=== PATIENT | female | born 1950 | race Caucasian/White ===

== ENCOUNTER 2018-05-27 17:41 | Observation (INO) ==
[2018-05-27] MEDS ORDERED: MethylPREDNISolone Sod Succinate Inj 125 MG/2 ML Vial IV.PUSH ONE (18:21)
--- NOTE | 2018-05-27 18:30 | ED ---
HPI General Chief Complaint: Respiratory Symptoms Stated Complaint: flu like symptoms x1week Time Seen by Provider: 05/27/18 18:14 Source: patient Mode of arrival: ambulatory Limitations: no limitations History of Present Illness MD Complaint: Reports shortness of breath Onset (ago): week(s) (2) Severity: moderate Consistency/Duration: constant and progressively worsening Relieving factors: bronchodilators Exacerbating factors: lying flat Known history of: Reports COPD and congestive heart failure Associated symptoms: Reports cough, wheezing and orthopnea; Denies fever Treatment prior to arrival: Reports bronchodilator Related Data Home oxygen amount: none Home Medications Medication Instructions Recorded Confirmed apixaban [Eliquis] 2.5 mg PO BID 05/27/18 05/27/18 furosemide 0 mg PO DAILY 05/27/18 05/27/18 magnesium 200 mg PO DAILY 05/27/18 05/27/18 metoprolol tartrate 50 mg PO BID 05/27/18 05/27/18 potassium chloride [Klor-Con 10] 20 meq PO BID 05/27/18 05/27/18 Previous Rx's Medication Instructions Recorded azithromycin [Zithromax] 250 mg PO DAILY 4 Days #4 tab 05/27/18 fluticasone-salmeterol [Advair 1 inh INHALATION BID #14 each 05/27/18 Diskus] promethazine-codeine 10 ml PO Q4-6H PRN #473 ml 05/27/18 Allergies Allergy/AdvReac Type Severity Reaction Status Date / Time iohexol Allergy Unknown vomitting Verified 05/27/18 17:46 Review of Systems ROS: all other systems reviewed are negative [facility] Social History Social History Substance History: No History of Abuse Smoking Status: Current every day smoker Tobacco Type: Cigarettes How Often Do You Have a Drink Containing Alcohol: Never Recent Travel in [facility] within the Last 8 Weeks: No Recent Out of Country Travel within the Last 8 Weeks: No Exam Const General: cooperative, healthy appearing, comfortable, no acute distress, well developed and well groomed Orientation: alert, awake and oriented x3 HENMT Head: normal to inspection, normocephalic and atraumatic Eyes Alignment and Position: alignment normal Conjunctivae: conjunctivae normal Sclera: sclerae normal EOM: EOM intact bilaterally Neck Neck: normal visual inspection and full ROM Chest Chest: normal inspection of the chest Resp Effort & Inspection: normal respiratory effort and able to speak in complete sentences Auscultation: rhonchi Cardio Rate: regular rate Rhythm: regular rhythm GI Inspection: normal to inspection Palpation: soft Back/Spine/Pelvis Cervical Spine: cervical ROM normal Thoracic/Lumbar Spine: thoraco-lumbar ROM normal Skin General: no rashes or lesions noted and turgor normal Neuro General: alert, awake, oriented x3, moves all extremities and CN's II-XI intact bilaterally Extrem General: normal to inspection and full ROM Psych Appearance: grossly normal Mental Status: mental status grossly normal Speech and Movement: speech and movement normal Mood: congruent mood Affect: normal affect Attitude: cooperative Thought Process: normal Thought Content: normal Judgment: judgment good Course Initial Documented Vital Signs Temperature 98.4 F 05/27/18 17:46 Pulse Rate 122 H 05/27/18 17:46 Respiratory Rate 24 05/27/18 17:46 Blood Pressure 151/62 H 05/27/18 17:46 Pulse Oximetry 93 L 05/27/18 17:46 Last Documented Vital Signs Temperature 98.4 F 05/27/18 17:46 Pulse Rate 111 H 05/27/18 18:30 Respiratory Rate 20 05/27/18 18:30 Blood Pressure 151/62 H 05/27/18 17:46 Pulse Oximetry 95 05/27/18 18:21 Medical Decision Making MDM Narrative Medical decision making narrative: of increasing dyspnea.This is a patient with history of both COPD and CHF who presents with a 2-week history she has used 3 nebulizer treatments today and states her symptoms are better at this point. She has been afebrile. She has not had purulent sputum production. She has had orthopnea. Dyspnea workup is in process. She will be treated with stacked duo nebs and Solu-Medrol. Further treatment and disposition will be dependent upon the results of her studies and response to treatment. CT has been ordered because of the results of the plain chest x-ray. In the meantime, she will be empirically treated for pneumonia with IV Rocephin and IV Zithromax. His CT is most compatible with pneumonia. Admission has been offered but refused. The patient is requesting a prescription for cough syrup. E-Forcse has been recorded and reviewed. She will be discharged home with prescriptions for Zithromax, Advair and Phenergan with codeine. She is refusing oral steroids. She states that she "blew up like a balloon" previously when on steroids. Medical Screen Exam Complete: Yes Emergency Medical Condition: Yes Differential Diagnosis Differential Diagnosis: Differential diagnosis of dyspnea includes but is not limited to congestive heart failure, pneumonia, wheezing, pneumothorax, pulmonary embolism Medical Records Medical records reviewed: Yes I reviewed the patient's medical records. Lab Data Lab results reviewed: Yes I reviewed the patient's lab results. Result diagrams: 05/27/18 18:43 05/27/18 18:43 Lab Results 05/27/18 05/27/18 05/27/18 Range/Units 18:43 18:43 18:43 CBC w Diff Slide review pending WBC 4.0 (4.0-11.0) th/mm3 RBC 4.81 (4.00-5.30) mil/mm3 Hgb 14.4 (11.6-15.3) gm/dL Hct 43.6 (35.0-46.0) % MCV 90.7 (80.0-100.0) fL MCH 30.0 (27.0-34.0) pg MCHC 33.0 (32.0-36.0) % RDW 15.2 (11.6-17.2) % Plt Count 75 L (150-450) th/mm3 MPV 8.2 (7.0-11.0) fL Neut % (Auto) 60.1 (16.0-70.0) % Lymph % (Auto) 20.4 (9.0-44.0) % Wilkin % (Auto) 16.6 H (0.0-8.0) % Eos % (Auto) 1.3 (0.0-4.0) % Baso % (Auto) 1.6 (0.0-2.0) % Neut # (Auto) 2.3 (1.8-7.7) th/mm3 Lymph # (Auto) 0.8 L (1.0-4.8) th/mm3 Wilkin # (Auto) 0.7 (0.0-0.9) th/mm3 Eos # (Auto) 0.1 (0.0-0.4) th/mm3 Baso # (Auto) 0.1 (0.0-0.2) th/mm3 WBC Differential . Diff Scan Auto diff confirmed Differential Comment . Platelet Estimate Low L (Normal) Platelet Morphology Normal (Normal) RBC Morphology Normal (Normal) Sodium 138 (136-145) meq/L Potassium 3.9 (3.5-5.1) meq/L Chloride 103 (98-107) meq/L Carbon Dioxide 26.2 (21.0-32.0) meq/L Anion Gap 9 (5-15) meq/L BUN 12 (7-18) mg/dL Creatinine 0.84 (0.50-1.00) mg/dL Estimated GFR 67 L (>89) mL/min Random Glucose 97 (74-106) mg/dL Calcium 8.7 (8.5-10.1) mg/dL Total Bilirubin 1.2 H (0.2-1.0) mg/dL AST 29 (15-37) U/L ALT 18 (10-53) U/L Alkaline Phosphatase 112 (45-117) U/L Troponin I Less than 0.02 L (0.02-0.05) ng/mL B-Natriuretic Peptide 158 H (0-100) pg/mL Total Protein 7.5 (6.4-8.2) g/dL Albumin 3.2 L (3.4-5.0) g/dL Imaging Data Attestation: I personally reviewed and interpreted this imaging study as follows : Radiologist's impression: Chest X-Ray 05/27/18 18:21 CONCLUSION: 1. Nearly masslike right perihilar parenchymal opacity. Consider CT examination for better evaluation. Chest CT 05/27/18 19:06 CONCLUSION: 1. Abnormality on chest x-ray corresponds to airspace consolidation in the medial superior segment of the right lower lobe and superimposed enlarged pulmonary artery branches. Findings are consistent with right lower lobe pneumonia. 2. Enlarged pulmonary arteries consistent with pulmonary artery hypertension. 3. Linear parenchymal opacities at the lung bases consistent with atelectasis/ scarring. Mild cardiomegaly. ECG Data EKG Prior to Arrival: No Attestation: I personally reviewed and interpreted this ECG as follows: (EKG shows atrial fibrillation with a ventricular rate of 112. No acute STT wave changes.) Discharge Plan Discharge Disposition Patient Disposition: Discharge Home Discharge Condition Condition: Stable Discharge Order Discharge Orders: Discharge Order (Routine); Ordered 05/27/18 Ordered By: Mariely Ludwig Discharge Details Diagnosis: Acute dyspnea, Pneumonia Physicians Team ED Provider: Mariely Ludwig Primary Care Provider: Susan Willis Rxs /Orders / Referrals /Forms Prescriptions: New azithromycin [Zithromax] 250 mg tablet 250 mg PO DAILY 4 Days Qty: 4 RF: 0 fluticasone-salmeterol [Advair Diskus] 250-50 mcg/dose blister with device 1 inh INHALATION BID Qty: 14 RF: 0 promethazine-codeine 6.25-10 mg/5 mL syrup 10 ml PO Q4-6H PRN (Reason: cough) Qty: 473 RF: 0 No Action potassium chloride [Klor-Con 10] 10 mEq Tablet Extended Release 20 meq PO BID RF: 0 metoprolol tartrate 50 mg Tablet 50 mg PO BID RF: 0 furosemide 20 mg Tablet PO DAILY RF: 0 magnesium 200 mg Tablet 200 mg PO DAILY RF: 0 apixaban [Eliquis] 2.5 mg Tablet 2.5 mg PO BID RF: 0 Referrals: Susan Willis MD [Primary Care Provider] - 1 Week Discharge Instructions Patient Printed Instructions: Bacterial Pneumonia (DC) Status ED Status: With Doctor
[2018-05-27 18:49] LABS: Baso # (Auto) 0.1 th/mm3 (0.0-0.2); Baso % (Auto) 1.6 % (0.0-2.0); Eos # (Auto) 0.1 th/mm3 (0.0-0.4); Eos % (Auto) 1.3 % (0.0-4.0); Hematocrit 43.6 % (35.0-46.0); Hemoglobin 14.4 gm/dL (11.6-15.3); Lymph # (Auto) 0.8 th/mm3 (1.0-4.8); Lymph % (Auto) 20.4 % (9.0-44.0); Mean Corpuscular Volume 90.7 fL (80.0-100.0); Mean Platelet Volume 8.2 fL (7.0-11.0); Mono # (Auto) 0.7 th/mm3 (0.0-0.9); Mono % (Auto) 16.6 % (0.0-8.0); Neut # (Auto) 2.3 th/mm3 (1.8-7.7); Neut % (Auto) 60.1 % (16.0-70.0); Platelet Count 75 th/mm3 (150-450); Red Blood Count 4.81 mil/mm3 (4.00-5.30); Red Cell Distribution Width 15.2 % (11.6-17.2)
[2018-05-27 18:58] LABS: Chloride 103 meq/L (98-107); Potassium 3.9 meq/L (3.5-5.1); Sodium 138 meq/L (136-145)
[2018-05-27 19:02] LABS: Albumin 3.2 g/dL (3.4-5.0); Anion Gap 9 meq/L (5-15); Blood Urea Nitrogen 12 mg/dL (7-18); Calcium 8.7 mg/dL (8.5-10.1); Carbon Dioxide 26.2 meq/L (21.0-32.0); Glucose,Random 97 mg/dL (74-106)
--- NOTE | 2018-05-27 19:03 | XR ---
EXAM DATE: 05/27/2018 6:59 PM EST AGE/SEX: 68 years / Female INDICATIONS: Chest pain, cough, wheezing and shortness of breath for about a week. CLINICAL DATA: This is the patient's initial encounter. Patient reports that signs and symptoms have been present for 1 week and indicates a pain score of 6/10. MEDICAL/SURGICAL HISTORY: Chronic obstructive pulmonary disease. Congestive heart failure. ANNEMARIE B. . Esophagus repair. Heart surgery. COMPARISON: POI, XR CHEST PA AND LAT, 05/15/2017. . FINDINGS: Right perihilar masslike parenchymal opacity. Cardiac silhouette is enlarged with slight indistinct c entral pulmonary vascularity. Bony thorax is intact. CONCLUSION: 1. Nearly masslike right perihilar parenchymal opacity. Consider CT examination for better evaluatio n. Electronically signed by: Lee Gonzalez MD Board Certified Radiologist 05/27/2018 7:02 PM [facility]
[2018-05-27 19:04] LABS: Platelet Morphology Normal (Normal); RBC Morphology Normal (Normal)
[2018-05-27 19:05] LABS: Alanine Aminotransferase 18 U/L (10-53); Aspartate Aminotransferase 29 U/L (15-37)
[2018-05-27 19:06] LABS: Glomerular Filtration Rate 67 mL/min (>89)
[2018-05-27 19:07] LABS: Total Protein 7.5 g/dL (6.4-8.2)
[2018-05-27 19:08] LABS: Alkaline Phosphatase 112 U/L (45-117)
[2018-05-27] MEDS ORDERED: Azithromycin Inj 500 MG in Sodium Chlor 0.9% Inj 250 ML IV.SIG ONE (19:23)
--- NOTE | 2018-05-27 19:57 | CT ---
EXAM DATE: 05/27/2018 7:51 PM EST AGE/SEX: 68 years / Female INDICATIONS: Shortness of breath. Chest mass. CLINICAL DATA: This is the patient's initial encounter. Patient reports that signs and symptoms have been present for 1 day and indicates a pain score of 2/10. MEDICAL/SURGICAL HISTORY: Chronic obstructive pulmonary disease. Atrial fibrillation. Congestive he art failure. Coronary artery disease. Hypertension. . RADIATION DOSE: 15.82 CTDI (mGy) COMPARISON: No prior exams available for comparison. TECHNIQUE: Multiple contiguous axial images were obtained through the chest without contrast. Image s were obtained in suspended respiration using multiple row detector helical technique. Using automa lilian exposure control and adjustment of the mA and/or kV according to patient size, radiation dose was kept as low as reasonably achievable to obtain optimal diagnostic quality images. DICOM format imag e data is available electronically for review and comparison. FINDINGS: Lung: Airspace consolidation in the medial superior segment of the right lower lobe. Linear airspace opacities at the lung bases bilaterally. Pleura: No effusion, significant pleural thickening or pneumothorax. Mediastinum: Mild cardiomegaly. No significant pericardial effusion. The right and left pulmonary ar teries are prominent measuring more than 3 cm. No gross mediastinal adenopathy. Osseous Structures: No abnormal focal lytic or blastic bony lesions. Soft Tissues: Soft tissues are unremarkable. No significant axillary adenopathy. Other: Visulaized upper abdomen is unremarkable. CONCLUSION: 1. Abnormality on chest x-ray corresponds to airspace consolidation in the medial superior segment o f the right lower lobe and superimposed enlarged pulmonary artery branches. Findings are consistent w ith right lower lobe pneumonia. 2. Enlarged pulmonary arteries consistent with pulmonary artery hypertension. 3. Linear parenchymal opacities at the lung bases consistent with atelectasis/scarring. Mild cardiom egaly. Electronically signed by: Lee Gonzalez MD Board Certified Radiologist 05/27/2018 7:56 PM [facility]
[2018-05-27] MEDS ORDERED: Chlorpheniramine 8 MG/Hydrocodone 10 MG/5 ML UDC PO ONE (20:18)
[2018-05-27] MEDS ORDERED: Acetaminophen 325 MG Tablet PO PRN (22:46)
[2018-05-27] MEDS ORDERED: Bisacodyl 10 MG Supp RECTAL PRN (22:46)
[2018-05-27] MEDS ORDERED: Heparin - SQ 10,000 UNITS/ML Vial SQ SCH (23:00)
[2018-05-28] MEDS: MethylPREDNISolone Sod Succinate Inj 40 MG/ML Vial IV.PUSH SCH ×3 (05:40→23:16)
[2018-05-28 08:41] LABS: Baso % (Auto) 0.7 % (0.0-2.0); Hematocrit 44.5 % (35.0-46.0); Hemoglobin 14.4 gm/dL (11.6-15.3); Lymph # (Auto) 0.4 th/mm3 (1.0-4.8); Lymph % (Auto) 12.9 % (9.0-44.0); Mean Corpuscular HGB Conc 32.4 % (32.0-36.0); Mean Corpuscular Hemoglobin 30.2 pg (27.0-34.0); Mean Corpuscular Volume 93.3 fL (80.0-100.0); Mean Platelet Volume 8.7 fL (7.0-11.0); Mono # (Auto) 0.2 th/mm3 (0.0-0.9); Mono % (Auto) 4.5 % (0.0-8.0); Neut # (Auto) 2.8 th/mm3 (1.8-7.7); Neut % (Auto) 81.9 % (16.0-70.0); Platelet Count 74 th/mm3 (150-450); Red Blood Count 4.77 mil/mm3 (4.00-5.30); Red Cell Distribution Width 15.7 % (11.6-17.2); White Blood Count 3.4 th/mm3 (4.0-11.0)
[2018-05-28 08:53] LABS: Chloride 107 meq/L (98-107); Potassium 4.3 meq/L (3.5-5.1); Sodium 139 meq/L (136-145)
[2018-05-28 08:57] LABS: Calcium 8.8 mg/dL (8.5-10.1)
[2018-05-28 08:58] LABS: Anion Gap 8 meq/L (5-15); Blood Urea Nitrogen 12 mg/dL (7-18); Carbon Dioxide 24.1 meq/L (21.0-32.0); Glucose,Random 162 mg/dL (74-106)
[2018-05-28] MEDS: Furosemide 20 MG Tablet PO SCH (09:00)
[2018-05-28] MEDS: Metoprolol Tartrate 50 MG Tablet PO SCH ×2 (09:00→23:17)
[2018-05-28 09:01] LABS: Glomerular Filtration Rate Greater Than 89 mL/min (>89)
[2018-05-28] MEDS: Senna/Docusate Sodium 8.6/50 MG Tablet PO SCH ×2 (09:01→23:17)
--- NOTE | 2018-05-28 10:21 | P.HPIM ---
History of Present Illness Primary Care Physician: Susan Willis Chief Complaint: sob, wheezing, cough History of Present Illness: The patient is a very pleasant male past medical history of COPD who presents to the emergency room with shortness of breath the past 2 weeks. Patient says shortness of breath is getting worse for the last 2 days, associated cough and wheezing. Says nebulizers at home helped a little bit. Says she feels congested and not able to bring up any sputum. Denies any chest pain. No palpitations. No nausea or vomiting no diarrhea constipation. No urinary complaints. Says she is very active and she wants to get better soon and get back to work. Review of Systems Review of Systems: all other systems reviewed are negative [facility] Medical History Medical History Atrial fibrillation (Chronic) CHF (congestive heart failure) (Chronic) COPD (chronic obstructive pulmonary disease) (Chronic) Coronary artery disease (Chronic) Hypertension (Chronic) Surgical History Surgical History H/O heart surgery (Acute) Family History Family History Father Heart problem Social History Social History Substance History: No History of Abuse Second Hand Smoke Exposure: Yes Smoking Status: Light tobacco smoker Tobacco Type: Cigarettes How Often Do You Have a Drink Containing Alcohol: Never Recent Travel in [place] within the Last 8 Weeks: No Recent Out of Country Travel within the Last 8 Weeks: No Immunization History Tetanus Immunization: >5 Years Medications and Allergies Allergies Allergy/AdvReac Type Severity Reaction Status Date / Time iohexol Allergy Unknown vomitting Verified 05/27/18 17:46 Home Medications Medication Instructions Recorded Confirmed Type apixaban [Eliquis] 2.5 mg PO BID 05/27/18 05/27/18 History furosemide 0 mg PO DAILY 05/27/18 05/27/18 History magnesium 200 mg PO DAILY 05/27/18 05/27/18 History metoprolol tartrate 50 mg PO BID 05/27/18 05/27/18 History potassium chloride [Klor-Con 10] 20 meq PO BID 05/27/18 05/27/18 History Active Medications: Active Medications Acetaminophen (Tylenol) 650 mg PO Q4H PRN PRN Reason: Temp > 100.4 Al Hydroxide/Mg Hydroxide (Milk Of Magnesia Liq) 30 ml PO Q12H PRN PRN Reason: Mild Constipation Albuterol (Duoneb Neb (Prn)) 1 ampul NEB Q4HR NEB PRN PRN Reason: sob/wheezing Apixaban (Eliquis) 2.5 mg PO BID [facility] Last Admin: 05/28/18 09:00 Dose: 2.5 mg Bisacodyl (Dulcolax Supp) 10 mg RECTAL DAILY PRN PRN Reason: SEVERE CONSITIPATION Furosemide (Lasix) 20 mg PO DAILY [facility] Last Admin: 05/28/18 09:00 Dose: 20 mg Azithromycin 500 mg/ Sodium (Chloride) 250 mls @ 250 mls/hr IV.SIG Q24H [place] Ceftriaxone Sodium 1,000 mg/ (Sodium Chloride) 100 mls @ 200 mls/hr IV.SIG Q24H [place] Lactulose (Lactulose Liq) 30 ml PO DAILY PRN PRN Reason: SEVERE CONSITIPATION Methylprednisolone Sodium Succinate (Solumedrol Inj) 40 mg IV.PUSH Q8HR [facility] Last Admin: 05/28/18 05:40 Dose: 40 mg Metoprolol Tartrate (Lopressor) 50 mg PO BID [facility] Last Admin: 05/28/18 09:00 Dose: 50 mg Ondansetron HCl (Zofran Inj) 4 mg IV.PUSH Q6H PRN PRN Reason: NAUSEA OR VOMITING Senna/Docusate Sodium (Aixa-Colace) 1 tab PO BID [facility] Last Admin: 05/28/18 09:01 Dose: Not Given Sennosides (Senokot) 17.2 mg PO Q12H PRN PRN Reason: Moderate Constipation Sodium Chloride (Ns Flush) 2 ml IV.FLUSH PRN PRN PRN Reason: FLUSH AFTER USING IV ACCESS Sodium Chloride (Ns Flush) 2 ml IV.FLUSH BID [facility] Last Admin: 05/28/18 09:00 Dose: 2 ml Sodium Chloride (Ns Flush) 2 ml IV.FLUSH PRN PRN PRN Reason: FLUSH AFTER USING IV ACCESS Physical Exam Vital signs: Last Vital Signs Temp 98.2 F 05/28/18 04:00 Pulse 97 H 05/28/18 04:00 Resp 16 05/28/18 04:00 BP 127/78 05/28/18 04:00 Pulse Ox 90 L 05/28/18 04:00 Intake & Output 05/26/18 05/27/18 05/28/18 05/29/18 06:59 06:59 06:59 06:59 Intake Total 380 / 380 Balance 380 / 380 Weight 102.1 kg Narrative: GENERAL: Very pleasant 68-year-old female, well-developed well- nourished, with shortness of breath and wheezing SKIN: Warm and dry. HEAD: Atraumatic. Normocephalic. EYES: Pupils equal and round. No scleral icterus. No injection or drainage. ENT: No nasal bleeding or discharge. Mucous membranes pink and moist. NECK: Trachea midline. No JVD. CARDIOVASCULAR: Regular rate and rhythm. RESPIRATORY: No accessory muscle use. Decreased breath sounds. Scattered wheezing. Bronchial sounds. GASTROINTESTINAL: Abdomen soft, non-tender, nondistended. Hepatic and splenic margins not palpable. MUSCULOSKELETAL: Extremities without clubbing, cyanosis, or edema. No obvious deformities. NEUROLOGICAL: Awake and alert. No obvious cranial nerve deficits. Motor grossly within normal limits. Five out of 5 muscle strength in the arms and legs. Normal speech. PSYCHIATRIC: Appropriate mood and affect; insight and judgment normal. Results Labs CBC & Chem 7: 05/28/18 07:43 05/28/18 07:43 Imaging Impressions Chest X-Ray 05/27/18 18:21 CONCLUSION: 1. Nearly masslike right perihilar parenchymal opacity. Consider CT examination for better evaluation. Chest CT 05/27/18 19:06 CONCLUSION: 1. Abnormality on chest x-ray corresponds to airspace consolidation in the medial superior segment of the right lower lobe and superimposed enlarged pulmonary artery branches. Findings are consistent with right lower lobe pneumonia. 2. Enlarged pulmonary arteries consistent with pulmonary artery hypertension. 3. Linear parenchymal opacities at the lung bases consistent with atelectasis/ scarring. Mild cardiomegaly. Caprini VTE Risk Assessment Caprini VTE Risk Assessment: Moderate/High Risk (score >= 2) Caprini Risk Assessment Model: Point Value = 1 Point Value = 2 Point Value = 3 Point Value = 5 Age 41-60 Minor surgery BMI > 25 kg/m2 Swollen legs Varicose veins or History of unexplained or recurrent spontaneous Oral contraceptives or hormone replacement Sepsis (< 1 month) Serious lung disease, including pneumonia (< 1 month) Abnormal pulmonary function Acute myocardial infarction Congestive heart failure (< 1 month) History of inflammatory bowel disease Medical patient at bed rest Age 61-74 Arthroscopic surgery Major open surgery (> 45 min) Laparoscopic surgery (> 45 min) Malignancy Confined to bed (> 72 hours) Immobilizing plaster cast Central venous access Age >= 75 History of VTE Family history of VTE Factor V Leiden Prothrombin [id number] Lupus anticoagulant Anticardiolipin antibodies Elevated serum homocysteine Heparin-induced thrombocytopenia Other congenital or acquired thrombophilia Stroke (< 1 month) Elective arthroplasty Hip, pelvis, or leg fracture Acute spinal cord injury (< 1 month) Prophylaxis Regimen: Total Risk Factor Score Risk Level Prophylaxis Regimen 0-1 Low Early ambulation 2 Moderate Order ONE of the following: *Sequential Compression Device (SCD) *Heparin 5000 units SQ BID 3-4 Higher Order ONE of the following medications: *Heparin 5000 units SQ TID *Enoxaparin/Lovenox 40 mg SQ daily (WT < 150 kg, CrCl > 30 mL/min) *Enoxaparin/Lovenox 30 mg SQ daily (WT < 150 kg, CrCl > 10-29 mL/min) *Enoxaparin/Lovenox 30 mg SQ BID (WT < 150 kg, CrCl > 30 mL/min) AND/OR *Sequential Compression Device (SCD) 5 or more Highest Order ONE of the following medications: *Heparin 5000 units SQ TID (Preferred with Epidurals) *Enoxaparin/Lovenox 40 mg SQ daily (WT < 150 kg, CrCl > 30 mL/min) *Enoxaparin/Lovenox 30 mg SQ daily (WT < 150 kg, CrCl > 10-29 mL/min) *Enoxaparin/Lovenox 30 mg SQ BID (WT < 150 kg, CrCl > 30 mL/min) AND *Sequential Compression Device (SCD) Assessment and Plan Plan 68-year-old female with Pneumonia COPD with exacerbation History of congestive heart failure unknown ejection fraction Chest x-ray and CT scan of the chest reviewed as above consistent with pneumonia Blood cultures pending Sputum cultures if obtainable IV antibiotics Rocephin and azithromycin. Mucinex Incentive spirometry, Acapella Resume home medications as appropriate. DVT ppx on eliquis Discussed Condition With: patient, nurse H&P: Quality VTE Deep Vein Thrombosis/Pulmonary Embolism Present on Admission: No
--- NOTE | 2018-05-28 18:43 | ECG ---
Date Performed: 05/27/2018 Time Performed: 18:29:38 PTAGE: 68 years EKG: ATRIAL FIBRILLATION WITH RAPID VENTRICULAR RESPONSE MARKED LEFT AXIS DEVIATION LOW QRS VOLT AGE IN PRECORDIAL LEADS POSSIBLE RIGHT VENTRICULAR CONDUCTION DELAY ABNORMAL ECG PREVIOUS TRACING : 08/03/2014 09.04 Compared to previous tracing, rate faster DOCTOR: Primitivo Navarrete Interpretating Date/Time 05/28/2018 18:41:11
[2018-05-28] MEDS ORDERED: Melatonin 5 MG Tablet PO PRN (21:00)
[2018-05-28] MEDS: guaiFENesin 600 MG ER Tablet PO SCH (23:14)
[2018-05-28] MEDS: Azithromycin Inj 500 MG in Sodium Chlor 0.9% Inj 250 ML IV.SIG SCH (23:15)
[2018-05-29] MEDS: MethylPREDNISolone Sod Succinate Inj 40 MG/ML Vial IV.PUSH SCH ×3 (06:47→22:00)
[2018-05-29] MEDS: Metoprolol Tartrate 50 MG Tablet PO SCH ×2 (09:45→20:37)
[2018-05-29] MEDS: Magnesium Oxide 400 MG Tablet PO SCH (09:45)
[2018-05-29] MEDS: Furosemide 20 MG Tablet PO SCH (09:45)
[2018-05-29] MEDS: Senna/Docusate Sodium 8.6/50 MG Tablet PO SCH ×2 (09:46→20:29)
--- NOTE | 2018-05-29 10:26 | P.PNIM ---
Subjective Interval history: The patient is in bed she is still with some shortness of breath and cough. However feels improved since yesterday. Patient is with low platelets and says she is on Eliquis 2.5 however no bleeding. Says she is not using alcohol at all and is not aware of having this problem before. No fever or chills overnight. Feels tired No chest pain. No rash on her body. She is interested to see oncology hematology for evaluation. Physical Exam Vital signs: Last Vital Signs Temp 99.6 F 05/29/18 09:10 Pulse 103 H 05/29/18 09:19 Resp 20 05/29/18 09:19 BP 123/56 L 05/29/18 09:10 Pulse Ox 93 L 05/29/18 09:19 Intake & Output 05/27/18 05/28/18 05/29/18 05/30/18 06:59 06:59 06:59 06:59 Intake Total 380 / 380 1550 / 1550 365 / 365 Balance 380 / 380 1550 / 1550 365 / 365 Weight 102.1 kg Narrative: GENERAL: Very pleasant 68-year-old female, well-developed well- nourished, with shortness of breath and wheezing SKIN: No petechia or rash. Warm and dry. CARDIOVASCULAR: Regular rate and rhythm. RESPIRATORY: No accessory muscle use. Decreased breath sounds. Scattered wheezing, improving. Bronchial sounds. GASTROINTESTINAL: Abdomen soft, non-tender, nondistended. MUSCULOSKELETAL: Extremities without clubbing, cyanosis, or edema. No obvious deformities. NEUROLOGICAL: Awake and alert. No obvious cranial nerve deficits. Motor grossly within normal limits. Five out of 5 muscle strength in the arms and legs. Normal speech. PSYCHIATRIC: Appropriate mood and affect; insight and judgment normal. Results Labs CBC & Chem 7: 05/28/18 07:43 05/28/18 07:43 Assessment and Plan Plan 68-year-old female with With sepsis meeting criteria on admission with leukopenia, tachycardia, pneumonia Pneumonia COPD with exacerbation History of congestive heart failure unknown ejection fraction Pancytopenia consult hematology oncology. Chest x-ray and CT scan of the chest reviewed as above consistent with pneumonia Blood cultures pending Sputum cultures if obtainable IV antibiotics Rocephin and azithromycin. Mucinex Incentive spirometry, Acapella Resume home medications as appropriate. DVT ppx on eliquis Discussed with the patient, nurse Progress Note: Quality VTE Deep Vein Thrombosis/Pulmonary Embolism Present on Admission: No
[2018-05-29] MEDS: guaiFENesin 600 MG ER Tablet PO SCH ×2 (15:52→20:29)
[2018-05-29] MEDS: Azithromycin Inj 500 MG in Sodium Chlor 0.9% Inj 250 ML IV.SIG SCH (20:26)
--- NOTE | 2018-05-30 01:45 | P.CON ---
History of Present Illness Service: hematology Primary Care Provider: Susan Willis Chief Complaint: sob, wheezing, cough History of Present Illness: Ms. Valero is a 68 year old lady with a history of COPD who is admitted to the ospital with shortness of breath and sputum production. She is currently being treated for pneumonia. Hematology consulted for evaluation of thrombocytopenia. She has a history of longstanding thrombocytopenia dating back to 2009. TCP at baseline. WBC has intermittely been elevated. Late note entry. Pateint seen on 05/29 Review of Systems All other systems reviewed negative except as stated in HPI [facility] - History History Provided By: Patient - Medical History Medical History: Medical History (Last Reviewed 05/30/18 @ 01:43 by Kacie Mcmanus) Atrial fibrillation CHF (congestive heart failure) COPD (chronic obstructive pulmonary disease) Coronary artery disease Hypertension - Surgical History Surgical History: Surgical History (Last Reviewed 05/30/18 @ 01:43 by Kacie Mcmanus) H/O heart surgery - Family History Family History: Family History (Last Reviewed 05/30/18 @ 01:43 by Kacie Mcmanus) Father Heart problem - Tobacco History Second Hand Smoke Exposure: Yes Tobacco Use In Past 30 Days: Yes Smoking Status: Light tobacco smoker Tobacco Type: Cigarettes - Alcohol History How Often Do You Have a Drink Containing Alcohol: Never - Substance Use History Substance History: No History of Abuse - Travel History Recent Travel in the [place] Within the Last 8 Weeks: No Recent Travel Out of the Country Within the Last 8 Weeks: No - Immunization History Tetanus Immunization: >5 Years Medications and Allergies Active Medications: Active Medications Acetaminophen (Tylenol) 650 mg PO Q4H PRN PRN Reason: Temp > 100.4 Al Hydroxide/Mg Hydroxide (Milk Of Darius Licholo) 30 ml PO Q12H PRN PRN Reason: Mild Constipation Albuterol (Duoneb Neb (Prn)) 1 ampul NEB Q4HR NEB PRN PRN Reason: sob/wheezing Albuterol (Duoneb Neb (Kody)) 1 ampul NEB Q6HR WHILE AWAKE NEB KODY Last Admin: 05/29/18 20:24 Dose: 1 ampul Apixaban (Eliquis) 2.5 mg PO BID K[facility] Last Admin: 05/29/18 20:29 Dose: 2.5 mg Bisacodyl (Dulcolax Supp) 10 mg RECTAL DAILY PRN PRN Reason: SEVERE CONSITIPATION Furosemide (Lasix) 20 mg PO DAILY [facility] Last Admin: 05/29/18 09:45 Dose: 20 mg Guaifenesin (Mucinex Er) 600 mg PO BID [facility] Last Admin: 05/29/18 20:29 Dose: 600 mg Azithromycin 500 mg/ Sodium (Chloride) 250 mls @ 250 mls/hr IV.SIG Q24H [facility] Last Admin: 05/29/18 20:26 Dose: 250 mls/hr Ceftriaxone Sodium 1,000 mg/ (Sodium Chloride) 100 mls @ 200 mls/hr IV.SIG Q24H [facility] Last Admin: 05/29/18 20:28 Dose: 200 mls/hr Lactulose (Lactulose Liq) 30 ml PO DAILY PRN PRN Reason: SEVERE CONSITIPATION Magnesium Oxide (Mag-Ox) 200 mg PO DAILY [facility] Last Admin: 05/29/18 09:45 Dose: 200 mg Melatonin (Melatonin) 5 mg PO HS PRN PRN Reason: INSOMNIA Methylprednisolone Sodium Succinate (Solumedrol Inj) 40 mg IV.PUSH Q8HR [facility] Last Admin: 05/29/18 22:00 Dose: 40 mg Metoprolol Tartrate (Lopressor) 50 mg PO BID [facility] Last Admin: 05/29/18 20:37 Dose: 50 mg Ondansetron HCl (Zofran Inj) 4 mg IV.PUSH Q6H PRN PRN Reason: NAUSEA OR VOMITING Senna/Docusate Sodium (Aixa-Colace) 1 tab PO BID [facility] Last Admin: 05/29/18 20:29 Dose: 1 tab Sennosides (Senokot) 17.2 mg PO Q12H PRN PRN Reason: Moderate Constipation Sodium Chloride (Ns Flush) 2 ml IV.FLUSH PRN PRN PRN Reason: FLUSH AFTER USING IV ACCESS Sodium Chloride (Ns Flush) 2 ml IV.FLUSH BID [facility] Last Admin: 05/29/18 20:29 Dose: 2 ml Sodium Chloride (Ns Flush) 2 ml IV.FLUSH PRN PRN PRN Reason: FLUSH AFTER USING IV ACCESS Allergies Allergy/AdvReac Type Severity Reaction Status Date / Time iohexol Allergy Unknown vomitting Verified 05/27/18 17:46 Home Medications Medication Instructions Recorded Confirmed Type apixaban [Eliquis] 2.5 mg PO BID 05/27/18 05/27/18 History furosemide 0 mg PO DAILY 05/27/18 05/27/18 History magnesium 200 mg PO DAILY 05/27/18 05/27/18 History metoprolol tartrate 50 mg PO BID 05/27/18 05/27/18 History potassium chloride [Klor-Con 10] 20 meq PO BID 05/27/18 05/27/18 History Physical Exam Vital signs: Vital Signs 05/29/18 09:10 05/29/18 09:19 05/29/18 13:56 Temperature 99.6 F Pulse Rate 120 H 103 H 92 H Respiratory Rate 20 20 20 Blood Pressure 123/56 L Pulse Oximetry 91 L 93 L 05/29/18 14:39 05/29/18 18:09 05/29/18 20:00 Temperature 96.8 F L 97.8 F 97.2 F L Pulse Rate 95 H 107 H 100 H Respiratory Rate 18 20 18 Blood Pressure 119/59 L 130/60 121/59 L Pulse Oximetry 91 L 92 L 93 L 05/29/18 20:25 05/29/18 23:34 Temperature 96.4 F L Pulse Rate 110 H 121 H Respiratory Rate 18 18 Blood Pressure 119/69 Pulse Oximetry 93 L 93 L Intake & Output 05/29/18 05/29/18 05/30/18 06:59 18:59 06:59 Intake Total 450 / 450 1265 / 1265 800 / 800 Balance 450 / 450 1265 / 1265 800 / 800 Intake: IV 450 / 450 Azithromycin Inj 500 MG In NS 250 / 250 Inj 250 ML @ 250 mls/hr IV.SIG Q24H [facility] Rx#:[id number] Rocephin Inj 1,000 MG In NS Inj 200 / 200 100 ML @ 200 mls/hr IV.SIG Q24H KODY Rx#:[id number] Oral 1265 / 1265 800 / 800 Other: # Voids 5 4 - Constitutional no acute distress - Routine HEENT Exam Head: Present: normocephalic, atraumatic Eye: Present: EOMI, PERRL ENT: Present: mucous membranes moist - Routine Respiratory Exam Present: CTA bilaterally - Routine Cardiovascular Exam Present: RRR - Routine Abdominal Exam Present: soft, normoactive bowel sounds - Routine Extremities Exam Comments: no edema - Routine Skin Exam Present: intact - Routine Psychiatric Exam Present: normal affect Results - Labs CBC & Chem 7: 05/30/18 06:18 05/30/18 06:18 Assessment and Plan - Plan TCP with intermittent low WBC for the past 8 years. WIll perform evaluation to include ultrasound of liver, spleen, iron profile, vitamin B12, folate, slide review, coags, fibrinogen, flow. Inpatient hematology service will continue to follow.
[2018-05-30] MEDS: MethylPREDNISolone Sod Succinate Inj 40 MG/ML Vial IV.PUSH SCH ×2 (05:54→17:18)
[2018-05-30 07:22] LABS: Potassium 3.8 meq/L (3.5-5.1)
[2018-05-30 07:23] LABS: Baso % (Auto) 0.4 % (0.0-2.0); Hemoglobin 13.8 gm/dL (11.6-15.3); Lymph # (Auto) 0.3 th/mm3 (1.0-4.8); Lymph % (Auto) 3.4 % (9.0-44.0); Mean Corpuscular HGB Conc 33.8 % (32.0-36.0); Mean Corpuscular Volume 91.9 fL (80.0-100.0); Mean Platelet Volume 8.7 fL (7.0-11.0); Mono # (Auto) 0.5 th/mm3 (0.0-0.9); Neut # (Auto) 8.2 th/mm3 (1.8-7.7); Neut % (Auto) 91.2 % (16.0-70.0); Platelet Count 77 th/mm3 (150-450); Red Blood Count 4.46 mil/mm3 (4.00-5.30); Red Cell Distribution Width 15.7 % (11.6-17.2)
[2018-05-30 07:25] LABS: Calcium 8.7 mg/dL (8.5-10.1)
[2018-05-30 07:26] LABS: Carbon Dioxide 27.9 meq/L (21.0-32.0)
[2018-05-30 07:31] LABS: Activated Partial Thrombo Time 25.7 sec (23.4-31.7); INR 1.2 Ratio
[2018-05-30] MEDS: guaiFENesin 600 MG ER Tablet PO SCH ×2 (08:15→21:37)
[2018-05-30] MEDS: Magnesium Oxide 400 MG Tablet PO SCH (08:15)
[2018-05-30] MEDS: Furosemide 20 MG Tablet PO SCH (08:15)
[2018-05-30] MEDS: Senna/Docusate Sodium 8.6/50 MG Tablet PO SCH ×2 (08:16→21:37)
[2018-05-30] MEDS: Metoprolol Tartrate 50 MG Tablet PO SCH ×2 (08:16→21:37)
--- NOTE | 2018-05-30 08:56 | US ---
EXAM DATE: 05/30/2018 8:44 AM EST AGE/SEX: 68 years / Female INDICATIONS: Abnormal labs. Thrombocytopenia. CLINICAL DATA: This is the patient's subsequent encounter. Patient reports that signs and symptoms h ave been present for 1 day and indicates a pain score of 0/10. MEDICAL/SURGICAL HISTORY: Chronic obstructive pulmonary disease. Congestive heart failure. Hy pertension. Afib. Coronary artery disease. . Heart surgery. COMPARISON: POI, CT ABDOMEN AND PELVIS W/O CONTRAST, 03/08/2015. . MEASUREMENTS: Liver:__ 13.7 cm. Common Bile Duct:__ 6mm. Right Kidney:__ 10.6 x 5.3 x 4.7 cm. FINDINGS: Liver: The liver is heterogeneous and echogenic suggesting diffuse hepatocellular disease and/or fatt y infiltration. No focal mass is noted. No biliary ductal dilatation is noted. Portal Vein: Hepatopedal flow seen in portal vein. Common Duct: No intraluminal mass or stone visualized. Gallbladder: Surgically absent. Pancreas: The visualized portions are within normal limits Right Kidney: Normal echogenicity and cortical thickness. No mass or hydronephrosis. Other: Mild splenomegaly is noted. CONCLUSION: 1. Heterogeneous echogenic liver suggesting diffuse hepatocellular disease and/or fatty infiltration . 2. Mild splenomegaly. Electronically signed by: Aristeo Jon MD Board Certified Radiologist 05/30/2018 8:55 AM EST
[2018-05-30 10:16] LABS: % Iron Saturation 10.7 % (20-50); Haptoglobin 148 mg/dL (30-200); Iron 44 mcg/dL (50-170); Lactate Dehydrogenase 178 U/L (84-246); Total Iron Binding Capacity 410 mcg/dL (250-450)
[2018-05-30 10:41] LABS: Ferritin 45 ng/mL (8-252); Folate 11.4 ng/mL (3.1-17.5)
--- NOTE | 2018-05-30 12:06 | P.PNIM ---
Subjective Interval history: In bed, still with wheezing. Still with cough. Less sob. Says dina is working very well and feels her lungs are clearing up. No fever or chills. No abdominal pain. No overt bleeding, PLT better, plan for US liver. Physical Exam Vital signs: Last Vital Signs Temp 96 F L 05/30/18 08:00 Pulse 108 H 05/30/18 08:00 Resp 20 05/30/18 08:00 BP 136/79 05/30/18 08:00 Pulse Ox 94 L 05/30/18 08:36 Intake & Output 05/28/18 05/29/18 05/30/18 05/31/18 06:59 06:59 06:59 06:59 Intake Total 380 / 380 1550 / 1550 2064 Balance 380 / 380 1550 / 1550 2064 Weight 102.1 kg 105.4 kg Narrative: GENERAL: Very pleasant 68-year-old female, well-developed well- nourished, appears in nad. SKIN: No petechia or rash. Warm and dry. CARDIOVASCULAR: Regular rate and rhythm. RESPIRATORY: No accessory muscle use. Decreased breath sounds. Scattered wheezing, improving. GASTROINTESTINAL: Abdomen soft, non-tender, nondistended. MUSCULOSKELETAL: Extremities without clubbing, cyanosis, or edema. No obvious deformities. NEUROLOGICAL: Awake and alert. No obvious cranial nerve deficits. Motor grossly within normal limits. Five out of 5 muscle strength in the arms and legs. Normal speech. PSYCHIATRIC: Appropriate mood and affect; insight and judgment normal. Results Labs CBC & Chem 7: 05/30/18 06:18 05/30/18 06:18 Imaging Imaging: Impressions Liver Ultrasound 05/30/18 00:00 CONCLUSION: 1. Heterogeneous echogenic liver suggesting diffuse hepatocellular disease and/ or fatty infiltration. 2. Mild splenomegaly. Assessment and Plan Plan 68-year-old female with With sepsis meeting criteria on admission with leukopenia, tachycardia, pneumonia Pneumonia COPD with exacerbation History of congestive heart failure unknown ejection fraction Thrombocytopenia. The patient says she doesn.t drink any EtOH. consult hematology/ oncology. Plan for US liver. LFTs are normal Chest x-ray and CT scan of the chest reviewed as above consistent with pneumonia Blood cultures pending Sputum cultures if obtainable IV antibiotics Rocephin and azithromycin. Mucinex Incentive spirometry, Dina Resume home medications as appropriate. DVT ppx on eliquis Discussed with the patient, nurse POss DC tomorrow 05/31 if improves and cleared by hematology Will order O2 walk test Progress Note: Quality VTE Deep Vein Thrombosis/Pulmonary Embolism Present on Admission: No
[2018-05-30] MEDS: Azithromycin Inj 500 MG in Sodium Chlor 0.9% Inj 250 ML IV.SIG SCH (21:37)
[2018-05-31] MEDS: MethylPREDNISolone Sod Succinate Inj 40 MG/ML Vial IV.PUSH SCH (06:15)
[2018-05-31] MEDS: Metoprolol Tartrate 50 MG Tablet PO SCH (09:49)
[2018-05-31] MEDS: Senna/Docusate Sodium 8.6/50 MG Tablet PO SCH (09:50)
[2018-05-31] MEDS: Magnesium Oxide 400 MG Tablet PO SCH (09:50)
[2018-05-31] MEDS: guaiFENesin 600 MG ER Tablet PO SCH (09:50)
[2018-05-31] MEDS: Furosemide 20 MG Tablet PO SCH (09:52)
--- NOTE | 2018-05-31 13:03 | MB ---
cc: Mike Martinez MD DATE: 05/31/2018 REASON FOR VISIT: Followup of history of thrombocytopenia. HISTORY OF PRESENT ILLNESS: Ms. Valero is doing very well and is sitting up in bed and hoping to be discharged home today. She has no new complaints and she told me that she follows up with a jalousie installer, Dr. 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 She has no bleeding or bruising. No fevers or night sweats. The patient is alert. She is not examined today. I reviewed her labs with her. I advised her that her platelet count is stable at 75,000 and her hemoglobin is normal with normal iron studies with no evidence of definite iron deficiency. At this point, she is stable with chronic ITP. From a hematologic point of view, she may be discharged home and can followup with her primary jalousie installer, Dr. Nolan. Mike Martinez MD MVA/ts , 11:34 AM , 11:40 AM
--- NOTE | 2018-05-31 13:51 | P.PNIM ---
Subjective Interval history: Patient is seen sitting up in bed. She is very eager for discharge. Tells me that she is feeling good. No further shortness of breath. No chest pain. No nausea vomiting or diarrhea. Physical Exam Vital signs: Last Vital Signs Temp 97.1 F L 05/31/18 00:00 Pulse 86 05/31/18 13:00 Resp 16 05/31/18 13:00 BP 134/76 05/31/18 00:00 Pulse Ox 94 L 05/31/18 08:26 Intake & Output 05/29/18 05/30/18 05/31/18 06/01/18 06:59 06:59 06:59 06:59 Intake Total 1550 / 1550 2064 / 2064 3680 / 3680 Balance 1550 / 1550 2064 3680 / 3680 Weight 105.4 kg 77.8 kg Narrative: GENERAL: Very pleasant 68-year-old female, well-developed well- nourished, appears in nad. SKIN: No petechia or rash. Warm and dry. CARDIOVASCULAR: Regular rate and rhythm. RESPIRATORY: No accessory muscle use. Decreased breath sounds. Scattered wheezing, improving. GASTROINTESTINAL: Abdomen soft, non-tender, nondistended. MUSCULOSKELETAL: Extremities without clubbing, cyanosis, or edema. No obvious deformities. NEUROLOGICAL: Awake and alert. No obvious cranial nerve deficits. Motor grossly within normal limits. Five out of 5 muscle strength in the arms and legs. Normal speech. PSYCHIATRIC: Appropriate mood and affect; insight and judgment normal. Results Labs CBC & Chem 7: 05/30/18 06:18 05/30/18 06:18 Assessment and Plan Plan 68-year-old female with sepsis meeting criteria on admission with leukopenia, tachycardia, pneumonia Pneumonia and COPD with exacerbation -significantly improved History of congestive heart failure unknown ejection fraction -stable -Chest x-ray and CT scan of the chest reviewed - consistent with pneumonia -Flu negative -On IV antibiotics Rocephin and azithromycin. Will be discharged with oral equivalents -Received Mucinex, Incentive spirometry, Acapella Thrombocytopenia. -Known ITP -possibly from treated hep C. Hematology consulted and recommends follow-up with outpatient provider. Resume home medications as appropriate. DVT ppx on eliquis Discharge planning: Home today Progress Note: Quality VTE Deep Vein Thrombosis/Pulmonary Embolism Present on Admission: No
--- NOTE | 2018-05-31 13:54 | P.DS ---
DS: Providers Date of admission: 05/27/18 22:46 Primary care physician: Susan Willis Consults: 05/29/18 13:39 Consult to Hematology Routine Consulting Provider: Kacie Mcmanus Reason for Consultation: pancytopenia Notified:: Service Spoke with:: jun Date Notified:: 05/29/18 Time Notified:: 13:44 Ordering Provider: BUCKY Brief History from admission: The patient is a very pleasant female past medical history of COPD who presents to the emergency room with shortness of breath the past 2 weeks. Patient says shortness of breath is getting worse for the last 2 days, associated cough and wheezing. Says nebulizers at home helped a little bit. Says she feels congested and not able to bring up any sputum. Denies any chest pain. No palpitations. No nausea or vomiting no diarrhea constipation. No urinary complaints. Says she is very active and she wants to get better soon and get back to work. DS: Summary 68-year-old female with sepsis meeting criteria on admission with leukopenia, tachycardia, pneumonia Pneumonia and COPD with exacerbation -significantly improved History of congestive heart failure unknown ejection fraction -stable -Chest x-ray and CT scan of the chest reviewed - consistent with pneumonia -Flu negative -On IV antibiotics Rocephin and azithromycin. Will be discharged with oral equivalents -Received Mucinex, Incentive spirometry, Acapella Thrombocytopenia. -Known ITP -possibly from treated hep C. Hematology consulted and recommends follow-up with outpatient provider. Time Spent with Patient Total time spent providing and/or coordinating discharge services: < 30 Min Quality: VTE Deep Vein Thrombosis/Pulmonary Embolism Present on Admission: No Exam Narrative Exam Narrative: GENERAL: Very pleasant 68-year-old female, well-developed well- nourished, appears in nad. SKIN: No petechia or rash. Warm and dry. CARDIOVASCULAR: Regular rate and rhythm. RESPIRATORY: No accessory muscle use. Clear. GASTROINTESTINAL: Abdomen soft, non-tender, nondistended. MUSCULOSKELETAL: Extremities without clubbing, cyanosis, or edema. No obvious deformities. NEUROLOGICAL: Awake and alert. No obvious cranial nerve deficits. Motor grossly within normal limits. Normal speech. PSYCHIATRIC: Appropriate mood and affect; insight and judgment normal. Results Impressions ITS Impressions Chest X-Ray 05/27/18 18:21 CONCLUSION: 1. Nearly masslike right perihilar parenchymal opacity. Consider CT examination for better evaluation. Chest CT 05/27/18 19:06 CONCLUSION: 1. Abnormality on chest x-ray corresponds to airspace consolidation in the medial superior segment of the right lower lobe and superimposed enlarged pulmonary artery branches. Findings are consistent with right lower lobe pneumonia. 2. Enlarged pulmonary arteries consistent with pulmonary artery hypertension. 3. Linear parenchymal opacities at the lung bases consistent with atelectasis/ scarring. Mild cardiomegaly. Liver Ultrasound 05/30/18 00:00 CONCLUSION: 1. Heterogeneous echogenic liver suggesting diffuse hepatocellular disease and/ or fatty infiltration. 2. Mild splenomegaly. Discharge Plan Discharge Disposition Patient Disposition: Discharge Home Discharge Condition Condition: Stable Discharge Order Discharge Orders: Discharge Order (Routine); Ordered 05/31/18 Ordered By: Mira Quintero ED Use Only Admit Order (Routine); Ordered 05/27/18 Ordered By: Mariely Ludwig Discharge Details Anticipated Discharge Date: 05/31/18 Diagnosis: Acute dyspnea, Pneumonia Physicians Team ED Provider: Mariely Ludwig Primary Care Provider: Susan Willis Attending Provider: Jesus Silver Other Providers: Kacie Mcmanus Rxs /Orders / Referrals /Forms Prescriptions: New fluticasone-salmeterol [Advair Diskus] 250-50 mcg/dose blister with device 1 inh INHALATION BID Qty: 14 RF: 0 cefuroxime axetil 500 mg tablet 500 mg PO BID 5 Days Qty: 10 RF: 0 azithromycin 500 mg tablet See Label Instructions .ROUTE .COMPLEX Qty: 3 RF: 0 Continue potassium chloride [Klor-Con 10] 10 mEq Tablet Extended Release 20 meq PO BID RF: 0 metoprolol tartrate 50 mg Tablet 50 mg PO BID RF: 0 furosemide 20 mg Tablet PO DAILY RF: 0 magnesium 200 mg Tablet 200 mg PO DAILY RF: 0 apixaban [Eliquis] 2.5 mg Tablet 2.5 mg PO BID RF: 0 Referrals: Primary Care Provider [Outside] - See Instructions Stand Alone Forms: Work Release/Restrictions Discharge Instructions Patient Printed Instructions: Bacterial Pneumonia (DC) Status ED Status: Left Department
== END 2018-05-31 15:26 | disposition home or self-care (01) ==
LOC: PHEDA 17:41 → PHED 17:41 → PH3 05-28 01:05
PROVIDERS: ADMIT Internal Medicine; ATTEND Internal Medicine
CPT/HCPCS: 71010; 71045; 71250; 76705; 80048; 80053; 82607; 82728; 82746; 83010; 83520; 83540; 83550; 83605; 83615; 83880; 84484; 85025; 85384; 85610; 85730; 87275; 87276; 87804; 88184; 88185; 90765; 90767; 90775; 93005; 94150; 94618; 94620; 94640; 94664; 94665; 94667; 94668; 96365; 96366; 96367; 96368; 96375; 96376; 99285; G0378; J0456; J0696; J2920; J2930; J7050